=== PATIENT | female | born 1980 | race Hispanic/Latino ===

== ENCOUNTER 2019-12-15 12:04 | Emergency (ER) | payer SELFPAY ==
[~2019-12-15 12:04] MED LIST: IBUPROFEN600 MG PO; PRENATAL1 TA1 PO
[2019-12-15] MEDS ORDERED: PREDNISONE20 MG PO (12:23)
[2019-12-15] MEDS ORDERED: VALACYCLOVIR HCL1 GM PO (12:23)
[2019-12-15 12:41] VITALS: BP 143/82
== END 2019-12-15 12:56 | disposition home or self-care (01) | DRG 74 ==
LOC: ED 12:04
DX: G51.0 Bell's palsy (principal)

== ENCOUNTER 2023-06-24 09:33 | Emergency (ER) | payer SELFPAY ==
[~2023-06-24] VITALS: Ht 147.3 cm; Wt 81.6 kg
[~2023-06-24 09:33] MED LIST changes: +PREDNISONE20 MG PO; +VALACYCLOVIR HCL1 GM PO
[2023-06-24 09:46] VITALS: BP 155/89
[2023-06-24 10:00] VITALS: BP 121/81
[2023-06-24 10:15] VITALS: BP 181/108
[2023-06-24] MEDS ORDERED: PREDNISONE50 MG PO (10:22)
[2023-06-24] MEDS ORDERED: NAPROXEN500 MG PO (10:22)
[2023-06-24] MEDS ORDERED: FLEXERIL5 M1 PO (10:22)
[2023-06-24 10:30] VITALS: BP 144/107
[2023-06-24 10:33] VITALS: BP 135/79
[2023-06-24 10:34] VITALS: BP 135/79
== END 2023-06-24 10:40 | disposition home or self-care (01) | DRG 552 ==
LOC: ED 09:33
DX: M54.9 Dorsalgia, unspecified (principal); M25.511 Pain in right shoulder